=== PATIENT | female | born 1955 | race African-American/Black ===

== ENCOUNTER 2020-01-26 09:35 | Outpatient (CLI) | payer BC, SELFPAY ==
--- NOTE | ~2020-01-26 | CT_ITS ---
EXAMINATION: CT chest wo con EXAM DATE: 01/26/2020 09:57 INDICATION: Lung nodule. TECHNIQUE: Spiral CT of the chest without contrast. Axial, coronal and sagittal images were reviewe d. Coronal maximum intensity pixel images of chest reviewed. The dose-length product (DLP) for this examination was 156.26 mGy-cm. The exposure was tailored according to patient size (auto mA exposur e control), and iterative reconstruction (ASIR) was used as additional dose reduction technique. Comp arison is made to prior examination from 02/19/2018. FINDINGS: There is mild emphysema and hyperinflation. 3 mm left lower lobe noncalcified granuloma un changed. There are no suspicious pulmonary nodules. There are no pleural or pericardial effusions. Tracheobronchial tree is patent. There is no mediastinal, hilar or axillary lymphadenopathy. The re is no pneumothorax. Heart normal in size. No evidence of coronary arterial calcification. Ther e is small sliding gastroesophageal hiatal hernia. Upper abdomen is unremarkable. There is thoraci c spondylosis without osteoblastic or osteolytic lesions identified. IMPRESSION: 1. Mild hyperinflation and emphysema. 2. Granuloma. Reviewed, dictated and finalized at location A.
== END 2020-01-26 09:36 | disposition home or self-care (01) ==
LOC: ANHIMG 09:37
PROVIDERS: PCP Nurse Practitioner; Visit Provider Nurse Practitioner
DX: R91.1 Solitary pulmonary nodule (principal); J43.9 Emphysema, unspecified; R91.8 Other nonspecific abnormal finding of lung field
CPT/HCPCS: 71250

== ENCOUNTER 2020-10-27 14:20 | Outpatient (CLI) | payer MEDICARE, SELFPAY ==
--- NOTE | ~2020-10-27 | MM_ITS ---
EXAMINATION: MM screening coty BI w enrique HISTORY: Screening TECHNIQUE: Craniocaudal and mediolateral oblique 3-D tomosynthesis images were obtained and synthetic 2-D images were generated. CAD analysis was submitted and interpreted. COMPARISON: No prior mammogram is available for comparison at this institution. BREAST PARENCHYMAL COMPOSITION: There are scattered areas of fibroglandular density. FINDINGS: There are focal asymmetries in the upper outer quadrant of the right breast. There are no s uspicious masses, calcifications or architectural distortion in the left breast. IMPRESSION: 1. Right breast asymmetries. 2. Additional mammographic views and possible breast ultrasound are recommended. BI-RADS Category 0: Incomplete: Needs additional imaging evaluation. Reviewed, dictated and finalized at location A. IMPRESSION: 1. Right breast asymmetries. 2. Additional mammographic views and possible breast ultrasound are recommended . BI-RADS Category 0: Incomplete: Needs additional imaging evaluation.
--- NOTE | ~2020-10-27 | DEXA_ITS ---
Bone Density Report Name: Courtney Lizama Age: 65 Sex: Female Ethnicity: Black Date of : 1955 Indication: postmenopausal; prior fracture; asthma or emphysema; hysterectomy; Referring Provider: Sindy Carl Study: Bone densitometry was performed. Exam Date: October 27, 2020 Accession number: [id number] Bone Density: Region BMD T-score Z-score Classification AP Spine (L1-L4) 1.145 0.9 1.9 Normal Femoral Neck (Left) 0.801 -0.4 0.2 Normal Total Hip (Left) 0.993 0.4 0.7 Normal Total Hip Bilateral Avg 0.965 0.2 0.6 Normal Femoral Neck (Right) 0.781 -0.6 0.1 Normal Total Hip (Right) 0.937 0.0 0.4 Normal World Health Organization criteria for BMD impression classify patients as: Normal (T-score at or above -1.0), Osteopenia (T-score between -1.0 and -2.5), or Osteoporosis (T-score at or below -2.5). 10-year Fracture Risk: FRAX not reported because: All T-scores for Spine Total, Hip Total, Femoral Neck at or above -1.0 Clinical Information Provided by Patient: Has had a low trauma fracture Has used the following medications: Vitamin D Has the following medical conditions: Asthma or Emphysema, Hysterectomy Patient maximum height was 65 Menopause Age: 41 No regular weight bearing exercise Drinks caffeinated beverages Onset of menses at age 11 Number of children 2 Impression: The patient has normal bone mass. The patient has risk factors, including: previous fracture. Discussion: BONE DENSITY IS ABOVE THE MINIMUM DESIRABLE LEVEL AT ALL SKELETAL SITES TESTED. This patient?s bone mineral density is above the minimum desirable level (T-score -1.0 or better) at all sites measured. The patient should follow a healthful lifestyle (good nutrition with adequate calcium and vitamin D, and appropriate weight-bearing exercise). Follow-Up: Consider repeating this study in 5 years or sooner if there is some new clinical indication. Reported by: CARRIE on 10/27/2020 2:56:00 PM. Reviewed, dictated and finalized at location [facility]
== END 2020-10-27 14:21 | disposition home or self-care (01) ==
LOC: ANHIMG 14:22
PROVIDERS: PCP Nurse Practitioner; Visit Provider Nurse Practitioner
DX: Z12.31 Encounter for screening mammogram for malignant neoplasm of breast (principal); R92.8 Other abnormal and inconclusive findings on diagnostic imaging of breast; Z78.0 Asymptomatic menopausal state
CPT/HCPCS: 77063; 77067; 77080

== ENCOUNTER 2020-11-22 12:42 | Outpatient (CLI) | payer MEDICARE, SELFPAY ==
--- NOTE | ~2020-11-22 | MMUS_ITS ---
EXAMINATION: MM diagnostic mammo unilat RT, US breast RT complete HISTORY: Right breast asymmetries reported on 10/27/2020 screening mammogram TECHNIQUE: Additional 3-D tomosynthesis images of the right breast were performed and synthetic 2-D i mages were generated. CAD analysis was submitted and interpreted. High resolution complete right farrah st ultrasound was performed. COMPARISON: 10/27/2020 bilateral digital screening mammogram FINDINGS: MAMMOGRAPHIC FINDINGS: No reproducible suspicious mass or architectural distortion is evident. Occasional benign calcificati ons. No malignant calcification, skin thickening or retraction is detected. ULTRASOUND: 12:00 2 cm from nipple: 4 mm simple cyst 1:00 near nipple: 5 mm cyst No suspicious mass or shadowing is detected. IMPRESSION: 1. No mammographic evidence of malignancy 2. Routine mammographic screening is recommended BI-RADS Category 2: Benign finding(s). Reviewed, dictated and finalized at location A. IMPRESSION: 1. No mammographic evidence of malignancy 2. Routine mammographic screening is recommended BI-RADS Category 2: Benign finding(s).
== END 2020-11-22 12:43 | disposition home or self-care (01) ==
LOC: ANHIMG 12:42
PROVIDERS: PCP Nurse Practitioner; Visit Provider Nurse Practitioner
DX: R92.8 Other abnormal and inconclusive findings on diagnostic imaging of breast (principal)
CPT/HCPCS: 76641; 77065

== ENCOUNTER 2021-02-16 10:32 | Outpatient (CLI) | payer MEDICARE, SELFPAY ==
--- NOTE | ~2021-02-16 | CT_ITS ---
EXAMINATION: CT diagnostic chest wo con DATE: 02/16/2021 10:54 INDICATION: Other nonspecific finding of the lung field TECHNIQUE: Computed tomography (CT) of the chest was performed without intravenous contrast. The dose -length product (DLP) was 156.37 mGy-cm. Automated exposure control and iterative reconstruction tech nique were employed. COMPARISON: 01/26/2020 FINDINGS: There is mild emphysema. A stable 3 mm subpleural nodule is noted in the left lower lobe. N o new pulmonary nodules are identified. The lungs are free of acute opacities. There is no pleural ef fusion or pneumothorax. No pathologically enlarged thoracic lymph nodes are identified. The heart siz e is normal. There is mild thoracic spondylosis. IMPRESSION: 1. Stable pulmonary nodule consistent with old granulomatous disease. Reviewed, dictated and finalized at location A.
== END 2021-02-16 10:33 ==
PROVIDERS: PCP Nurse Practitioner; Visit Provider Nurse Practitioner
DX: R91.8 Other nonspecific abnormal finding of lung field (principal); M47.814 Spondylosis without myelopathy or radiculopathy, thoracic region; R91.1 Solitary pulmonary nodule
CPT/HCPCS: 71250

== ENCOUNTER 2021-10-24 08:00 | Outpatient (CLI) | payer MEDICARE, SELFPAY ==
--- NOTE | 2021-11-16 11:41 | WPDSLEEPSTUD ---
Sleep Study Date of Study: 10/24/21 Ordering Provider: Sindy Carl NP Interpreting Physician: Roxanna Flowers MD Sleep Study Type: Split Polysomnogram Height: 1.68 m Weight: 93.894 kg Body Mass Index: 33.4 Neck Circumference (inches): 17 [place]: 10 Reason for Sleep Study Hypersomnia Sleep History Courtney Lizama is a 66 year old female with loud snoring and witnessed apneas. She rarely awakens from sleep feeling short of breath. She occasionally awakens at night with heartburn, belching or coughing. She constantly snores loudly enough that others complain about it. She occasionally has trouble sleeping with a cold. She rarely wakes up gasping for breath at night. She rarely has breathing problems at night observed by others. She does not sweat excessively at night or notice her heart pounding or beating irregularly at night. She does not fall asleep during the day does not fall asleep involuntarily or while driving. She denies loss of muscle tone with strong emotion. She does not have daytime difficulties due to excessive sleepiness. She does not feel paralyzed on waking or falling asleep. She rarely has vivid dreamlike scenes upon awakening or falling asleep. She does not feel afraid to go to sleep. She rarely has nightmares. She occasionally remembers her dreams. She does not have racing thoughts. She rarely feels sad or depressed. She does not have anxiety. She rarely has muscular tension. She does not notice parts of her body jerking. She does not kick at night. She rarely has crawling and aching feelings in her legs. She rarely has any kind of leg pain during the night. She does not have morning jaw pain. She denies grinding her teeth during sleep. She is not bothered by pain during the day and is not awakened by pain during the night. She rarely wakes up feeling stiff in the morning, rarely wakes up with sore or achy muscles and rarely wakes up with pain in the neck and spine. She sometimes has headaches. Normal bedtime is 8:30 p.m. falling a quickly waking up once or twice at night to go to the bathroom and is easily able to return to sleep. She wakes the morning at 5:30 a.m.. Her weekend schedule varies with bedtime later at 10:00 p.m. but still wakes up 5:30 a.m. She does n take naps in the afternoon or evening. She feels good on waking. Habits: Quit tobacco 9 years ago. Coffee 2 cups a day. No alcohol or recreational drugs. [facility] Past Medical History Medical History Asthma Depression Hyperlipidemia Hypertension, essential, benign Lung nodule, multiple RT upper lung and LT lower lung nodules Osteoporosis Surgical History Surgical History History of section 1974, 1978 History of elbow surgery (~2015) Mass removed from left elbow History of hysterectomy (~2015) Family History Family History Other Family history of cardiovascular disease Family history of coronary artery disease Family history of malignant neoplasm Hypertension Social History Social History Smoking status: Former smoker Second hand tobacco smoke exposure: No Smoking end date: 04/30/07 Alcohol intake: current Substance use: never Substance use type: does not use Gender identity (if verbalized by the patient): Female Medications Home Medications Medication Instructions Recorded Confirmed Type aspirin 81 mg tablet,delayed 81 mg PO DAILY 03/26/19 09/21/21 History release (Adult Low Dose Aspirin) cetirizine 10 mg tablet (Zyrtec) 10 mg PO DAILY 03/26/19 09/21/21 History albuterol sulfate 2.5 mg/3 mL 2.5 mg (3 mL) inhalation Q4-6H PRN 08/04/20 09/21/21 Rx (0.083 %) solution for nebulization shortness of breath or wheezing #75 mL atorvastatin 20 mg tablet (L
[2021-11-16 13:26] VITALS: BMI 33.4
== END 2021-10-25 05:46 | disposition home or self-care (01) ==
LOC: ANHCSM 08:00
PROVIDERS: PCP Nurse Practitioner; Visit Provider Nurse Practitioner
DX: G47.10 Hypersomnia, unspecified (principal); G47.33 Obstructive sleep apnea (adult) (pediatric)
CPT/HCPCS: 95811

== ENCOUNTER 2022-02-11 08:14 | Outpatient (CLI) | payer MEDICARE, SELFPAY ==
--- NOTE | ~2022-02-11 | MM_ITS ---
EXAMINATION: MM screening coty BI w enrique HISTORY: Screening TECHNIQUE: Craniocaudal and mediolateral oblique 3-D tomosynthesis images were obtained and synthetic 2-D images were generated. CAD analysis was submitted and interpreted. COMPARISON: Comparison to multiple prior studies sequentially, with oldest reviewed study dated 10/27. BREAST PARENCHYMAL COMPOSITION: There are scattered areas of fibroglandular density. FINDINGS: There is a new focal asymmetry medially in the right breast on CC view. The left breast is stable without evidence for malignancy. IMPRESSION: 1. New right breast asymmetry. 2. Additional mammographic views and possible breast ultrasound are recommended. BI-RADS Category 0: Incomplete: Needs additional imaging evaluation. Reviewed, dictated and finalized at location A. IMPRESSION: 1. New right breast asymmetry. 2. Additional mammographic views and possible breast ultrasound are recommended . BI-RADS Category 0: Incomplete: Needs additional imaging evaluation.
== END 2022-02-11 08:15 | disposition home or self-care (01) ==
PROVIDERS: PCP Nurse Practitioner; Visit Provider Nurse Practitioner
DX: Z12.31 Encounter for screening mammogram for malignant neoplasm of breast (principal); R92.8 Other abnormal and inconclusive findings on diagnostic imaging of breast
CPT/HCPCS: 77063; 77067

== ENCOUNTER 2022-03-07 09:24 | Outpatient (CLI) | payer MEDICARE, SELFPAY ==
[2022-03-07 18:23] LABS: Basophils Percent Auto 0.2 % (0.2-1.2); Hematocrit 41.4 % (37.0-47.0); Hemoglobin 12.8 g/dL (12.0-15.0); Immature Granulocyte Absolute 0.02 K/mm3 (0.00-0.031); Immature Granulocyte Percent A 0.3 % (0-0.5); Lymphocytes Absolute Auto 2.59 K/mm3 (0.9-3.2); Lymphocytes Percent Auto 40.7 % (18.3-44.2); Mean Corpuscular HGB Conc 30.9 g/dl (32-36); Mean Corpuscular Hemoglobin 29.9 pg (26-34); Mean Corpuscular Volume 96.7 fl (80-100); Mean Platelet Volume 10.4 fl (7.4-10.4); Monocytes Absolute Auto 0.7 K/mm3 (0.1-0.6); Monocytes Percent Auto 10.2 % (2.6-8.5); Neutrophils Absolute Auto 3.1 K/mm3 (1.3-6.7); Neutrophils Percent Auto 48.6 % (45.5-73.1); Platelet Count Result 189 k/mm3 (150-375); Red Blood Count 4.28 M/mm3 (4.2-5.4); Red Cell Distribution Width 13.1 % (11.5-14.5); White Blood Count 6.4 K/mm3 (4.5-10.0)
[2022-03-07 18:53] LABS: Alanine Aminotransferase 27 U/L (6-35); Albumin Level 4.4 g/dL (3.5-5.1); Alkaline Phosphatase 98 U/L (38-126); Anion Gap 7 mmol/L (8-16); Aspartate Amino Transferase 29 U/L (14-36); Bilirubin,Total 0.5 mg/dL (0.2-1.3); Blood Urea Nitrogen 17 mg/dL (7-17); Calcium 9.5 mg/dL (8.4-10.2); Carbon Dioxide 29 mmol/L (22-30); Chloride 104 mmol/L (98-107); Cholesterol 170 mg/dL (0-200); Estimated Glomerular Filt Rate > 60; Glucose 90 mg/dL (65-110); HDL Direct 43 mg/dL; Potassium 4.5 mmol/L (3.4-5.0); Sodium 140 mmol/L (137-145); Triglycerides 83 mg/dL (<150)
[2022-03-07 19:02] LABS: LDL Cholesterol Direct 99 mg/dL
[2022-03-07 20:26] LABS: Thyroid Stimulating Hormone Reflex 0.614 uIU/mL (0.465-4.68)
== END 2022-03-07 09:25 | disposition home or self-care (01) ==
LOC: ANHGOSHLAB 09:26
PROVIDERS: PCP Family Medicine; Visit Provider Nurse Practitioner
DX: R63.5 Abnormal weight gain (principal); E78.5 Hyperlipidemia, unspecified; I10 Essential (primary) hypertension
CPT/HCPCS: 36415; 80053; 80061; 84443; 85025

== ENCOUNTER → 2022-03-10 08:36 | Outpatient (CLI) | payer MEDICARE, SELFPAY ==
--- NOTE | ~2022-03-10 | MMUS_ITS ---
EXAMINATION: MM diagnostic coty RT w enrique, US breast RT complete HISTORY: New right breast asymmetry reported in medial aspect right breast on screening craniocaudal view of 02/11/2022. TECHNIQUE: Additional 3-D tomosynthesis images of right breast were performed and synthetic 2-D image s were generated. CAD analysis was submitted and interpreted. High resolution complete right breast u ltrasound including all 4 quadrants and subareolar area was performed. COMPARISON: 02/11/2022 bilateral screening mammogram 11/22/2020 diagnostic right mammogram and complete right breast ultrasound 10/27/2020 bilateral screening mammogram FINDINGS: MAMMOGRAPHIC FINDINGS: Possible 9.5 mm mass in the central left breast medial to mid sagittal plane, 4 cm deep to the nipple (coned compression craniocaudal Tomosynthesis image ) ULTRASOUND: 1:00 4 cm from nipple: Parallel circumscribed hypoechoic 4.4 x 7.6 x 7.5 mm lesion is noted, without posterior features or internal vascularity. 9:00 4 cm from nipple: Mildly irregular approximately 3 mm hypoechoic lesion is noted IMPRESSION: 1. Suspicious abnormalities of right breast at 1:00 4 cm from nipple and 9:00 4 cm from nipple 2. Ultrasound-guided biopsy of 1:00 and 9:00 lesions is recommended BI-RADS category 4, suspicious findings. Dr. Celestin telephoned the report and ultrasound-guided biopsy recommendations of right breast at 1:00 a nd 9:00 on 03/10/2022 at 1005 hours to Sindy Carl Reviewed, dictated and finalized at location A. Y MOTORMAN IMPRESSION: 1. Suspicious abnormalities of right breast at 1:00 4 cm from nipple and 9:00 4 cm from nipple 2. Ultrasound-guided biopsy of 1:00 and 9:00 lesions is recommended BI-RADS category 4, suspicious findings. Dr. Celestin telephoned the report and ultrasound-guided biopsy recommendations of right breast at 1:00 and 9:00 on 03/10/2022 at 1005 hours to Sindy Carl
== END ==
PROVIDERS: PCP Nurse Practitioner; Visit Provider Nurse Practitioner
DX: R92.8 Other abnormal and inconclusive findings on diagnostic imaging of breast (principal)
CPT/HCPCS: 76641; 77061; 77065; G0279

== ENCOUNTER 2022-06-10 08:15 | Outpatient (CLI) | payer MEDICARE, SELFPAY ==
--- NOTE | ~2022-06-10 | CT_ITS ---
CT Scan of the Chest without Contrast: Clinical Indication: Lung nodule Technique: Contiguous sections were acquired throughout the chest without intravenous contrast. Dose reduction technique was used on this scan by utilizing automated exposure control and iterative recon struction technique. The dose-length product (DLP) was 204.25 mGy-cm. COMPARISON: 02/16/2021, 02/19/2018 Findings: There is no evidence of any significant mediastinal, hilar or axillary lymphadenopathy. The mediastin al soft tissues appear normal. There is no evidence of pleural or pericardial effusion. Stable 2 mm right apical pulmonary nodule. Stable 3 mm subpleural nodule at the left lung base periph erally. Images through the upper abdomen reveal no abnormalities. Impression: Stable subcentimeter pulmonary nodules, as noted above. Stability since 2017 is compatible with benig nity. Reviewed, dictated and finalized at [facility]. ASOUND TECHNICIAN Impression: Stable subcentimeter pulmonary nodules, as noted above. Stability since 2018 is compatible with benignity.
== END 2022-06-10 08:16 | disposition home or self-care (01) ==
PROVIDERS: PCP Family Medicine; Visit Provider Nurse Practitioner
DX: R91.8 Other nonspecific abnormal finding of lung field (principal)
CPT/HCPCS: 71250

== ENCOUNTER 2022-09-20 09:26 | Outpatient (CLI) | payer MEDICARE, SELFPAY ==
[2022-09-20 13:08] LABS: Basophils Percent Auto 0.2 % (0.2-1.2); Hematocrit 40.4 % (37.0-47.0); Hemoglobin 12.7 g/dL (12.0-15.0); Immature Granulocyte Absolute 0.04 K/mm3 (0.00-0.031); Immature Granulocyte Percent A 0.6 % (0-0.5); Lymphocytes Absolute Auto 2.75 K/mm3 (0.9-3.2); Lymphocytes Percent Auto 41.8 % (18.3-44.2); Mean Corpuscular HGB Conc 31.4 g/dl (32-36); Mean Corpuscular Hemoglobin 29.8 pg (26-34); Mean Corpuscular Volume 94.8 fl (80-100); Mean Platelet Volume 10.2 fl (7.4-10.4); Monocytes Absolute Auto 0.7 K/mm3 (0.1-0.6); Monocytes Percent Auto 9.9 % (2.6-8.5); Neutrophils Absolute Auto 3.1 K/mm3 (1.3-6.7); Neutrophils Percent Auto 47.5 % (45.5-73.1); Platelet Count Result 198 k/mm3 (150-375); Red Blood Count 4.26 M/mm3 (4.2-5.4); Red Cell Distribution Width 12.9 % (11.5-14.5); White Blood Count 6.6 K/mm3 (4.5-10.0)
[2022-09-20 13:27] LABS: Alanine Aminotransferase 27 U/L (6-35); Albumin Level 4.2 g/dL (3.5-5.1); Alkaline Phosphatase 92 U/L (38-126); Anion Gap 4 mmol/L (8-16); Aspartate Amino Transferase 56 U/L (14-36); Bilirubin,Total 0.5 mg/dL (0.2-1.3); Blood Urea Nitrogen 19 mg/dL (7-17); Calcium 9.5 mg/dL (8.4-10.2); Carbon Dioxide 32 mmol/L (22-30); Chloride 104 mmol/L (98-107); Cholesterol 175 mg/dL (0-200); Estimated Glomerular Filt Rate > 60; Glucose 89 mg/dL (65-110); HDL Direct 45 mg/dL; Potassium 4.3 mmol/L (3.4-5.0); Sodium 140 mmol/L (137-145); Triglycerides 130 mg/dL (<150)
[2022-09-20 13:38] LABS: LDL Cholesterol Direct 103 mg/dL
[2022-09-20 13:51] LABS: Hemoglobin A1C 5.7 % (<5.7)
[2022-09-20 13:52] LABS: Thyroid Stimulating Hormone 0.258 uIU/mL (0.465-4.680)
[2022-09-20 13:57] LABS: Vitamin D 25 Hydroxy 31.8 ng/mL
== END 2022-09-20 09:27 | disposition home or self-care (01) ==
LOC: ANHGOSHLAB 09:27
PROVIDERS: PCP Family Medicine; Visit Provider Nurse Practitioner Family
DX: I10 Essential (primary) hypertension (principal); Z13.220 Encounter for screening for lipoid disorders; Z13.29 Encounter for screening for other suspected endocrine disorder; Z13.1 Encounter for screening for diabetes mellitus
CPT/HCPCS: 36415; 80053; 80061; 82306; 83036; 84443; 85025

== ENCOUNTER 2022-11-15 08:55 | Outpatient (CLI) | payer MEDICARE, SELFPAY ==
--- NOTE | 2022-11-15 11:00 | NEURO_ITS ---
Impression: # Complains of numbness of hands. # Bilateral Carpal Tunnel Syndrome of mild degree. # Bilateral ulnar neuropathy across the elbows. # Normal needle/EMG. Nerve Conduction Studies Anti Sensory Summary Table Stim Site NR Peak (ms) P-T Amp (?V) Site1 Site2 Delta-P (ms) Dist (cm) [place] (m/s) Left Median Anti Sensory (2-3nd Digit) Wrist 4.4 13.4 Wrist 2-3nd Digit 4.4 14.0 32 Wrist 7.9 16.2 Wrist 2-3nd Digit 4.4 14.0 32 Right Median Anti Sensory (2-3nd Digit) Wrist 4.2 16.1 Wrist 2-3nd Digit 4.2 14.0 33 Wrist 4.3 13.8 Wrist 2-3nd Digit 4.2 14.0 33 Left Radial Anti Sensory (Base 1st Digit) Wrist 2.0 18.4 Wrist Base 1st Digit 2.0 0.0 Right Radial Anti Sensory (Base 1st Digit) Wrist 2.3 19.1 Wrist Base 1st Digit 2.3 0.0 Left Ulnar Anti Sensory (5th Digit) Wrist 2.7 15.0 Wrist 5th Digit 2.7 14.0 52 Right Ulnar Anti Sensory (5th Digit) Wrist 2.6 26.1 Wrist 5th Digit 2.6 14.0 54 Motor Summary Table Stim Site NR Onset (ms) O-P Amp (mV) Site1 Site2 Delta-0 (ms) Dist (cm) [place] (m/s) Left Median Motor (Abd Poll Brev) Wrist 4.7 2.8 Elbow Wrist 4.7 29.0 62 Elbow 9.4 3.2 Right Median Motor (Abd Poll Brev) Wrist 4.2 2.5 Elbow Wrist 5.5 30.0 55 Elbow 9.7 1.6 Left Ulnar Motor (Abd Dig Minimi) Wrist 2.9 5.7 A Elbow Wrist 6.0 29.0 48 A Elbow 8.9 4.6 B Elbow Wrist 3.4 20.0 59 B Elbow 6.3 2.9 Right Ulnar Motor (Abd Dig Minimi) Wrist 2.3 7.6 A Elbow Wrist 6.0 29.0 48 A Elbow 8.3 6.5 B Elbow Wrist 4.0 21.0 53 B Elbow 6.3 3.0 F Wave Studies NR F-Lat (ms) L-R F-Lat (ms) Left Median (Mrkrs) (Abd Poll Brev) 31.02 1.07 Right Median (Mrkrs) (Abd Poll Brev) 29.95 1.07 Left Ulnar (Mrkrs) (Abd Dig Min) 29.83 0.56 Right Ulnar (Mrkrs) (Abd Dig Min) 29.26 0.56 EMG Side Muscle Nerve Root Ins Act Fibs Amp Dur Recrt Comment Right 1stDorInt Ulnar C8-T1 Nml Nml Nml Nml Nml Right Ext Indicis Radial (Post Int) C7-8 Nml Nml Nml Nml Nml Right Ext Digitorum Radial (Post Int) C7-8 Nml Nml Nml Nml Nml Right BrachioRad Radial C5-6 Nml Nml Nml Nml Nml Right PronatorTeres Median C6-7 Nml Nml Nml Nml Nml Right Abd Poll Brev Median C8-T1 Nml Nml Nml Nml Nml Left 1stDorInt Ulnar C8-T1 Nml Nml Nml Nml Nml Left Ext Indicis Radial (Post Int) C7-8 Nml Nml Nml Nml Nml Left Ext Digitorum Radial (Post Int) C7-8 Nml Nml Nml Nml Nml Left BrachioRad Radial C5-6 Nml Nml Nml Nml Nml Left PronatorTeres Median C6-7 Nml Nml Nml Nml Nml Left Abd Poll Brev Median C8-T1 Nml Nml Nml Nml Nml Right ABD Dig Min Ulnar C8-T1 Nml Nml Nml Nml Nml Left ABD Dig Min Ulnar C8-T1 Nml Nml Nml Nml Nml MTDD
== END 2022-11-15 08:56 | disposition home or self-care (01) ==
LOC: ANHNEURO 08:56
PROVIDERS: PCP Family Medicine; Visit Provider Nurse Practitioner Family
DX: M54.9 Dorsalgia, unspecified (principal); G56.03 Carpal tunnel syndrome, bilateral upper limbs; G56.23 Lesion of ulnar nerve, bilateral upper limbs
CPT/HCPCS: 95886; 95911

== ENCOUNTER 2022-11-22 13:42 | Outpatient (CLI) | payer MEDICARE, SELFPAY ==
[2022-11-22 19:08] LABS: Alanine Aminotransferase 30 U/L (6-35); Albumin Level 4.4 g/dL (3.5-5.1); Alkaline Phosphatase 86 U/L (38-126); Anion Gap 6 mmol/L (8-16); Aspartate Amino Transferase 32 U/L (14-36); Bilirubin,Total 0.4 mg/dL (0.2-1.3); Blood Urea Nitrogen 22 mg/dL (7-17); Calcium 10.2 mg/dL (8.4-10.2); Carbon Dioxide 30 mmol/L (22-30); Chloride 103 mmol/L (98-107); Estimated Glomerular Filt Rate > 60; Glucose 78 mg/dL (65-110); Potassium 4.4 mmol/L (3.4-5.0); Sodium 139 mmol/L (137-145)
== END 2022-11-22 13:43 | disposition home or self-care (01) ==
LOC: ANHGOSHLAB 13:46
PROVIDERS: PCP Family Medicine; Visit Provider Nurse Practitioner Family
DX: R20.2 Paresthesia of skin (principal); I10 Essential (primary) hypertension; Z13.29 Encounter for screening for other suspected endocrine disorder
CPT/HCPCS: 36415; 80053; 82607; 83735; 84443

== ENCOUNTER 2023-03-29 11:12 | Outpatient (CLI) | payer MEDICARE, SELFPAY ==
[2023-03-29 15:01] LABS: Basophils Percent Auto 0.1 % (0.2-1.2); Hematocrit 39.9 % (37.0-47.0); Hemoglobin 12.4 g/dL (12.0-15.0); Immature Granulocyte Absolute 0.03 K/mm3 (0.00-0.031); Immature Granulocyte Percent A 0.4 % (0-0.5); Lymphocytes Absolute Auto 3.15 K/mm3 (0.9-3.2); Lymphocytes Percent Auto 43.8 % (18.3-44.2); Mean Corpuscular HGB Conc 31.1 g/dl (32-36); Mean Corpuscular Hemoglobin 29.6 pg (26-34); Mean Corpuscular Volume 95.2 fl (80-100); Mean Platelet Volume 10.3 fl (7.4-10.4); Monocytes Absolute Auto 0.6 K/mm3 (0.1-0.6); Monocytes Percent Auto 8.8 % (2.6-8.5); Neutrophils Absolute Auto 3.4 K/mm3 (1.3-6.7); Neutrophils Percent Auto 46.9 % (45.5-73.1); Platelet Count Result 202 k/mm3 (150-375); Red Blood Count 4.19 M/mm3 (4.2-5.4); Red Cell Distribution Width 12.9 % (11.5-14.5); White Blood Count 7.2 K/mm3 (4.5-10.0)
[2023-03-29 15:25] LABS: Alanine Aminotransferase 27 U/L (6-35); Albumin Level 4.4 g/dL (3.5-5.1); Alkaline Phosphatase 96 U/L (38-126); Anion Gap 8 mmol/L (8-16); Aspartate Amino Transferase 44 U/L (14-36); Bilirubin,Total 0.6 mg/dL (0.2-1.3); Blood Urea Nitrogen 15 mg/dL (7-17); Calcium 9.9 mg/dL (8.4-10.2); Carbon Dioxide 30 mmol/L (22-30); Chloride 105 mmol/L (98-107); Cholesterol 186 mg/dL (0-200); Estimated Glomerular Filt Rate > 60; Glucose 68 mg/dL (65-110); HDL Direct 42 mg/dL; Sodium 143 mmol/L (137-145); Triglycerides 103 mg/dL (<150)
[2023-03-29 15:37] LABS: LDL Cholesterol Direct 103 mg/dL
[2023-03-29 16:02] LABS: Thyroid Stimulating Hormone 0.294 uIU/mL (0.465-4.680)
[2023-03-29 17:42] LABS: Hemoglobin A1C 5.5 % (<5.7)
== END 2023-03-29 11:13 | disposition home or self-care (01) ==
LOC: ANHGOSHLAB 11:13
PROVIDERS: PCP Family Medicine; Visit Provider Nurse Practitioner Family
DX: R91.8 Other nonspecific abnormal finding of lung field (principal); R73.03 Prediabetes; I10 Essential (primary) hypertension; Z13.29 Encounter for screening for other suspected endocrine disorder; Z13.220 Encounter for screening for lipoid disorders
CPT/HCPCS: 36415; 80053; 80061; 83036; 84443; 85025

== ENCOUNTER 2023-07-07 07:11 | Outpatient (CLI) | payer MEDICARE, SELFPAY ==
--- NOTE | ~2023-07-07 | MM_ITS ---
EXAMINATION: MM screening coty BI w enrique HISTORY: Screening mammogram TECHNIQUE: Craniocaudal and mediolateral oblique 3-D tomosynthesis images were obtained and synthetic 2-D images were generated. CAD analysis was submitted and interpreted. COMPARISON: 03/10/2022 diagnostic right mammogram and complete right breast ultrasound examination BREAST PARENCHYMAL COMPOSITION: There are scattered areas of fibroglandular density. FINDINGS: Asymmetry is again noted on the right. Diagnostic right mammogram and right breast ultrasou nd examination are recommended. No suspicious mass, architectural distortion, malignant calcification, skin thickening or retraction or significant new or developing density of the left breast is detected. IMPRESSION: 1. Right mammographic asymmetry 2. Diagnostic right mammogram and right breast ultrasound examination are recommended. BI-RADS Category 0: Incomplete: Needs additional imaging evaluation. Reviewed, dictated and finalized at location A. CUTTING MACHINE OPERATOR IMPRESSION: 1. Right mammographic asymmetry 2. Diagnostic right mammogram and right breast ultrasound examination are recom mended. BI-RADS Category 0: Incomplete: Needs additional imaging evaluation.
== END 2023-07-07 07:12 | disposition home or self-care (01) ==
LOC: ANHIMG 07:14
PROVIDERS: PCP Family Medicine; Visit Provider Nurse Practitioner Family
DX: Z12.31 Encounter for screening mammogram for malignant neoplasm of breast (principal); R92.8 Other abnormal and inconclusive findings on diagnostic imaging of breast
CPT/HCPCS: 77063; 77067

== ENCOUNTER 2023-07-30 13:06 | Outpatient (CLI) | payer MEDICARE, SELFPAY ==
--- NOTE | ~2023-07-30 | MMUS_ITS ---
EXAMINATION: MM diagnostic coty RT w enrique, US breast RT limited HISTORY: Follow-up right breast asymmetry TECHNIQUE: Additional 3-D tomosynthesis images of the right breast were performed and synthetic 2-D i mages were generated. CAD analysis was submitted and interpreted. High resolution Limited right breas t ultrasound was performed. COMPARISON: 07/07/2023 BREAST PARENCHYMAL COMPOSITION: Not dense: There are scattered areas of fibroglandular density. FINDINGS: MAMMOGRAPHIC FINDINGS: There are persistent asymmetries primarily centered in the upper outer quadrant of the right breast w hich are obscured by fibroglandular content. No discrete mass identified. There are no suspicious zeferino cifications or architectural distortion. ULTRASOUND: Limited right breast ultrasound: At 9:00, 9 cm from the nipple there is a 3 mm cyst. At 10:00, near t he nipple there is a 4 mm cyst. At 11:00 near the nipple is a cluster of microcysts. At 12:00, 5 cm f rom the nipple there is a 1 cm minimally complicated cyst. IMPRESSION: 1. No evidence for malignancy in the right breast. Benign findings. 2. Routine yearly screening mammogram and regular clinical breast examination are recommended. BI-RADS Category 2: Benign finding(s). Reviewed, dictated and finalized at location A. IMPRESSION: 1. No evidence for malignancy in the right breast. Benign findings. 2. Routine yearly screening mammogram and regular clinical breast examination a re recommended. BI-RADS Category 2: Benign finding(s).
== END 2023-07-30 13:07 | disposition home or self-care (01) ==
LOC: ANHIMG 13:07
PROVIDERS: PCP Family Medicine; Visit Provider Nurse Practitioner Family
DX: N63.10 Unspecified lump in the right breast, unspecified quadrant (principal); R92.8 Other abnormal and inconclusive findings on diagnostic imaging of breast
CPT/HCPCS: 76642; 77061; 77065; G0279

== ENCOUNTER 2024-01-10 09:52 | Outpatient (CLI) | payer MEDICARE, SELFPAY ==
[2024-01-10 18:53] LABS: Basophils Percent Auto 0.2 % (0.2-1.2); Hematocrit 40.2 % (37.0-47.0); Immature Granulocyte Absolute 0.02 K/mm3 (0.00-0.031); Immature Granulocyte Percent A 0.3 % (0-0.5); Lymphocytes Absolute Auto 2.78 K/mm3 (0.9-3.2); Lymphocytes Percent Auto 42.2 % (18.3-44.2); Mean Corpuscular HGB Conc 32.3 g/dl (32-36); Mean Corpuscular Hemoglobin 30.6 pg (26-34); Mean Corpuscular Volume 94.6 fl (80-100); Mean Platelet Volume 10.7 fl (7.4-10.4); Monocytes Absolute Auto 0.6 K/mm3 (0.1-0.6); Neutrophils Absolute Auto 3.2 K/mm3 (1.3-6.7); Neutrophils Percent Auto 48.3 % (45.5-73.1); Platelet Count Result 214 k/mm3 (150-375); Red Blood Count 4.25 M/mm3 (4.2-5.4); Red Cell Distribution Width 12.8 % (11.5-14.5); White Blood Count 6.6 K/mm3 (4.5-10.0)
[2024-01-10 19:16] LABS: Alanine Aminotransferase 29 U/L (6-35); Albumin Level 4.4 g/dL (3.5-5.1); Alkaline Phosphatase 86 U/L (38-126); Anion Gap 11 mmol/L (4-12); Aspartate Amino Transferase 45 U/L (14-36); Bilirubin,Total 0.3 mg/dL (0.2-1.3); Blood Urea Nitrogen 17 mg/dL (7-17); Calcium 9.8 mg/dL (8.4-10.2); Carbon Dioxide 28 mmol/L (22-30); Chloride 101 mmol/L (98-107); Cholesterol 169 mg/dL (0-200); Estimated Glomerular Filt Rate > 60; Glucose 75 mg/dL (65-110); HDL Direct 41 mg/dL; Potassium 4.4 mmol/L (3.4-5.0); Sodium 140 mmol/L (137-145); Triglycerides 95 mg/dL (<150)
[2024-01-10 19:36] LABS: LDL Cholesterol Direct 104 mg/dL
[2024-01-10 19:42] LABS: Thyroid Stimulating Hormone 0.215 uIU/mL (0.465-4.680)
[2024-01-10 19:44] LABS: Vitamin D 25 Hydroxy 25.6 ng/mL
[2024-01-10 19:50] LABS: Hemoglobin A1C 5.8 % (<5.7)
== END 2024-01-10 09:53 | disposition home or self-care (01) ==
LOC: ANHGOSHLAB 09:53
PROVIDERS: PCP Family Medicine; Visit Provider Nurse Practitioner Family
DX: R73.03 Prediabetes (principal); Z00.00 Encounter for general adult medical examination without abnormal findings; E55.9 Vitamin D deficiency, unspecified; Z13.29 Encounter for screening for other suspected endocrine disorder; E78.2 Mixed hyperlipidemia
CPT/HCPCS: 36415; 80053; 80061; 82306; 83036; 84443; 85025

== ENCOUNTER 2024-01-10 10:21 | Outpatient (CLI) | payer MEDICARE, SELFPAY ==
--- NOTE | ~2024-01-10 | CT_ITS ---
EXAMINATION: CT diagnostic chest wo con DATE: 01/10/2024 10:39 INDICATION: Other nonspecific abnormal finding of lung field, asthma TECHNIQUE: Computed tomography (CT) of the chest was performed without intravenous contrast. Addition al 3D reconstructions utilizing coronal maximum intensity projection (MIP) were performed. Automated exposure control and iterative reconstruction technique were employed. The dose-length product was 29 5.51 mGy-cm. COMPARISON: 06/10/2022 FINDINGS: There is mild bronchial wall thickening with scattered mucous plugging in some of the smaller subsegm ental bronchi in the bilateral upper lobes. No significant change in a few scattered 3 mm or smaller nodules in both lungs. No pneumonia, pulmonary edema or pleural effusion. Heart size is normal. No pe ricardial effusion. Thoracic aorta is normal in caliber. No pathologically enlarged thoracic lymphade nopathy. The visualized upper abdomen is unremarkable. Mild to moderate thoracic spondylosis. IMPRESSION: 1. No interval change in a few 3 mm or smaller scattered pulmonary nodules which given the interval s tability are likely benign. 2. Mild bronchial wall thickening which could be due to bronchitis or reactive airway disease/asthma with some subsegmental mucous plugging in a few of the bilateral upper lobe bronchi. Reviewed, dictated and finalized at location B. IMPRESSION: 1. No interval change in a few 3 mm or smaller scattered pulmonary nodules whic h given the interval stability are likely benign. 2. Mild bronchial wall thickening which could be due to bronchitis or reactive airway disease/asthma with some subsegmental mucous plugging in a few of the bi lateral upper lobe bronchi.
== END 2024-01-10 10:22 | disposition home or self-care (01) ==
PROVIDERS: PCP Family Medicine; Visit Provider Nurse Practitioner Family
DX: R91.8 Other nonspecific abnormal finding of lung field (principal); J45.909 Unspecified asthma, uncomplicated
CPT/HCPCS: 71250

== ENCOUNTER 2024-07-01 11:00 | Outpatient (CLI) | payer MEDICARE, SELFPAY ==
[2024-07-01 13:25] LABS: Basophils Percent Auto 0.2 % (0.2-1.2); Hematocrit 39.6 % (37.0-47.0); Hemoglobin 12.6 g/dL (12.0-15.0); Immature Granulocyte Absolute 0.02 K/mm3 (0.00-0.031); Immature Granulocyte Percent A 0.3 % (0-0.5); Lymphocytes Absolute Auto 2.33 K/mm3 (0.9-3.2); Lymphocytes Percent Auto 39.5 % (18.3-44.2); Mean Corpuscular HGB Conc 31.8 g/dl (32-36); Mean Corpuscular Hemoglobin 30.1 pg (26-34); Mean Corpuscular Volume 94.7 fl (80-100); Mean Platelet Volume 10.6 fl (7.4-10.4); Monocytes Absolute Auto 0.6 K/mm3 (0.1-0.6); Monocytes Percent Auto 9.3 % (2.6-8.5); Neutrophils Percent Auto 50.7 % (45.5-73.1); Platelet Count Result 211 k/mm3 (150-375); Red Blood Count 4.18 M/mm3 (4.2-5.4); Red Cell Distribution Width 12.8 % (11.5-14.5); White Blood Count 5.9 K/mm3 (4.5-10.0)
[2024-07-01 14:14] LABS: Alanine Aminotransferase 25 U/L (6-35); Albumin Level 4.3 g/dL (3.5-5.1); Alkaline Phosphatase 81 U/L (38-126); Anion Gap 9 mmol/L (4-12); Aspartate Amino Transferase 30 U/L (14-36); Bilirubin,Total 0.6 mg/dL (0.2-1.3); Blood Urea Nitrogen 16 mg/dL (7-17); Carbon Dioxide 27 mmol/L (22-30); Chloride 104 mmol/L (98-107); Cholesterol 162 mg/dL (0-200); Estimated Glomerular Filt Rate > 60; Glucose 77 mg/dL (65-110); HDL Direct 46 mg/dL; Potassium 4.4 mmol/L (3.4-5.0); Sodium 140 mmol/L (137-145); Triglycerides 90 mg/dL (<150)
[2024-07-01 14:25] LABS: LDL Cholesterol Direct 81 mg/dL
[2024-07-01 14:44] LABS: Thyroid Stimulating Hormone 0.301 uIU/mL (0.465-4.680)
[2024-07-01 15:29] LABS: Free T4 Free Thyroxine 1.29 ng/dL (0.78-2.19); Vitamin D 25 Hydroxy 49.1 ng/mL
[2024-07-01 20:22] LABS: Hemoglobin A1C 5.5 % (<5.7)
== END 2024-07-01 11:01 | disposition home or self-care (01) ==
LOC: ANHGOSHLAB 11:02
PROVIDERS: PCP Family Medicine; Visit Provider Nurse Practitioner Family
DX: E55.9 Vitamin D deficiency, unspecified (principal); I10 Essential (primary) hypertension; E78.5 Hyperlipidemia, unspecified; E05.90 Thyrotoxicosis, unspecified without thyrotoxic crisis or storm; R73.03 Prediabetes
CPT/HCPCS: 36415; 80053; 80061; 82306; 83036; 84439; 84443; 85025

== ENCOUNTER 2024-12-31 16:11 | Outpatient (CLI) | payer MEDICARE, SELFPAY ==
--- NOTE | ~2024-12-31 | MM_ITS ---
EXAMINATION: MM screening coty BI w enrique HISTORY: Screening TECHNIQUE: Craniocaudal and mediolateral oblique 3-D tomosynthesis images were obtained and synthetic 2-D images were generated. CAD analysis was submitted and interpreted. COMPARISON: Mammograms from 07/30/2023, 07/07/2023, 03/10/2022 and 02/11/2022 BREAST PARENCHYMAL COMPOSITION: There are scattered areas of fibroglandular density. FINDINGS: No suspicious calcifications. Mass in the lower inner quadrant of the right breast, middle depth. Asymmetry in the upper left breast, middle depth, seen in the left MLO projection IMPRESSION: 1. Mass in the lower inner quadrant of the right breast, middle depth. The study is incomplete. A diagnostic right breast mammogram and a diagnostic right breast ultrasound is recommended. 2. Asymmetry in the upper left breast. The study is incomplete. A diagnostic left breast mammogram and diagnostic left breast ultrasound is recommended. BI-RADS Category 0: Incomplete-needs additional imaging evaluation Reviewed, dictated and finalized at location Q. IMPRESSION: 1. Mass in the lower inner quadrant of the right breast, middle depth. The stud y is incomplete. A diagnostic right breast mammogram and a diagnostic right diomedes ast ultrasound is recommended. 2. Asymmetry in the upper left breast. The study is incomplete. A diagnostic le ft breast mammogram and diagnostic left breast ultrasound is recommended. BI-RADS Category 0: Incomplete-needs additional imaging evaluation
--- OUTSIDE RECORDS SUMMARY | 2024-12-31 17:14 | XMS_ITS | Clinical Summary ---
Author Organization [facility] [employer] Address [address] [address] Care Team Providers Care Associate Dentist Name Role Phone Unavailable Primary Care Provider Unavailabl e Source Comments [facility],non-owned Affiliates and Associated Physician Practices is amultiple site organization consisting of ambulatory clinics and hospital sitesin [place], [place], [place] and [place]. This disclosure is being madepursuant to the Care Everywhere program and may not contain all information available regarding this patient. 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 Gender Identity Not on file Sexual Orientation Not on file Plan of Treatment Health Maintenance Due Date Last Done Comments BONE DENSITY TESTING 1955 COLOGUARD (AGES 45-75) - COL ON CA SCREENING 1955 COLON MONITORING 1955 COLONOSCOPY - COLON CA SCREENING 1955 CT COLONOGRAPHY - COLON CA SCREENING 1955 Colorectal Cancer Screening 1955 FIT - COLON CA SCREENING 1955 FLEX SIG - COLON CA SCREENING 1955 LIPID TESTING 1955 MAMMOGRAM 1955 HEPATITIS C SCREENING 04/03/1973 DTAP/TDAP/TD VACCINES (1 - Tdap) 1974 PNEUMOCOCCAL VACCINE 50+ (1 of 1 - PCV) 2005 ZOSTER VACCINE (1 of 2) 2005 DEPRESSION SCREENING 04/30/2024 COVID-19 VACCINE (3 - 2024-2 6 season) 2024 07/10/2020, 06/12/2020 INFLUENZA VACCINE (#1) 2024 0, 02/07/2019, 02/12/2018 Respiratory Syncytial Virus (RSV) Vaccine Pt: or over 60 yrs (1 - 1-dose 75+ series) 2030 HEPATITIS B VACCINE Aged Out No longe r eligible based on patient's age to complete this topic HIB VACCINE Aged Out No longer eligi ble based on patient's age to complete this topic HPV VACCINE Aged Out No longer eligi ble based on patient's age to complete this topic MENINGOCOCCAL (Group B) VACCINE SHARED DECISION-MAKING Aged Out No longer eligible based on patient's age to complete this topic MENINGOCOCCAL GROUPS A/C/Y/W VACCINE Aged Out No longer eligible b ased on patient's age to complete this topic
== END 2024-12-31 16:12 | disposition home or self-care (01) ==
LOC: ANHFOHIMG 16:35
PROVIDERS: PCP Family Medicine; Visit Provider Nurse Practitioner Family
DX: Z12.31 Encounter for screening mammogram for malignant neoplasm of breast (principal); R92.8 Other abnormal and inconclusive findings on diagnostic imaging of breast
CPT/HCPCS: 77063; 77067

== ENCOUNTER 2025-01-26 07:31 | Outpatient (CLI) | payer MEDICARE, SELFPAY ==
--- NOTE | ~2025-01-26 | MMUS_ITS ---
EXAMINATION: MM diagnostic coty BI w enrique, US breast LT complete, US breast RT limited HISTORY: Follow-up right breast mass and left breast asymmetry TECHNIQUE: Additional 3-D tomosynthesis images of the breasts were performed and synthetic 2-D images were generated. CAD analysis was submitted and interpreted. High resolution Limited right and complete left breast ultrasound was performed. COMPARISON: Comparison to multiple prior studies sequentially, with oldest reviewed study dated 11/22/2020. BREAST PARENCHYMAL COMPOSITION: Not dense: There are scattered areas of fibroglandular density. FINDINGS: MAMMOGRAPHIC FINDINGS: There is a small 5 mm mass lower inner quadrant of the right breast, anterior- middle depth. In the left breast there are obscured small masses in the upper aspect of the left breast on MLO view, not definitely visualized on prior cc view. ULTRASOUND: Complete US of all 4 quadrants of the breast/s and retroareolar region was reviewed. Right breast: At 11:00, 5 cm from the nipple there are 2 adjacent oval hypoechoic mass is largest measuring 6 mm. At 12:00, 4 cm from the nipple there is an oval hypoechoic mass without internal vascularity, posterior features. There is parallel orientation with mass measuring up to 7 mm. These findings are likely benign. Left breast: There are multiple small cysts of the left breast. At 10:00 near the nipple there is an oval hypoechoic mass with low level internal echoes measuring 4 mm. There is parallel orientation, no posterior features and no internal vascularity. At 11:00 near the nipple there is a cluster of minimally complicated cysts. At 12:00, 5 cm from the nipple there is an oval mildly complicated cyst measuring 10 mm with parallel orientation, no significant posterior features and no internal vascularity, likely benign. IMPRESSION: 1. Probable benign bilateral breast masses. 2. Recommend 6 month follow-up diagnostic bilateral mammogram and Limited bilateral breast ultrasound. BI-RADS category 3, probably benign findings. Reviewed, dictated and finalized at location B. IMPRESSION: 1. Probable benign bilateral breast masses. 2. Recommend 6 month follow-up diagnostic bilateral mammogram and Limited bilat eral breast ultrasound. BI-RADS category 3, probably benign findings. IMPRESSION: 1. Probable benign bilateral breast masses. 2. Recommend 6 month follow-up diagnostic bilateral mammogram and Limited bilat eral breast ultrasound. BI-RADS category 3, probably benign findings.
== END 2025-01-26 07:32 | disposition home or self-care (01) ==
LOC: MICIMG 07:31
PROVIDERS: PCP Family Medicine; Visit Provider Family Medicine
DX: R92.8 Other abnormal and inconclusive findings on diagnostic imaging of breast (principal)
CPT/HCPCS: 76641; 76642; 77062; 77066; G0279

== ENCOUNTER 2025-01-29 12:33 | Outpatient (CLI) | payer MEDICARE, SELFPAY ==
--- OUTSIDE RECORDS SUMMARY | 2025-01-29 12:40 | XMS_ITS | Clinical Summary ---
Author Organization [facility] Address [address] [place] [address] Care Team Providers Care [place] Management Professor Name Role Phone Unavailable Primary Care Provider Unavailabl e Source Comments [facility],non-owned Affiliates and Associated Physician Practices is amultiple site organization consisting of ambulatory clinics and hospital sitesin [place], [place], [place] and [place]. This disclosure is being madepursuant to the Care Everywhere program and may not contain all information available regarding this patient. Last updated 18.[facility] Social History Tobacco Use Types Packs/Day Years Used Date Smoking Tobacco: Never Assessed Comments Unknown Sex and Gender Information Value Date Recorded Sex Assigned at Not on file Legal Sex Female 6:13 AM [employer] Gender Identity Not on file Sexual Orientation [...]
--- NOTE | 2025-01-29 13:15 | NEURO_ITS ---
Clinical note: Patient is 69-year-old with complaints of paresthesias in her fingers the right side. There is also history of fracture of the right arm in 1993. No history of diabetes mellitus. The patient has worked as a director business management for 33 years. on a brief neurological examination no focal muscle weakness or wasting or fasciculations were seen in both upper limb muscles. Summary of findings 1. Left and right median motor distal latency with a mild to moderately prolonged left more than right side. Amplitude were within normal limits however conduction velocity mildly decreased on the left and normal on the right side. 2. Left and right ulnar motor distal latencies, amplitudes and conduction velocities from below elbow to wrist were within normal limits however there is mild focal slowing noted across the elbow. 3. Left median palmar and digital sensory responses were absent. Right median palmar and digital sensory distal latencies are moderately prolonged and amplitude is decreased. Conduction velocity also moderately decreased. 4. Left and right radial sensory distal latencies and amplitudes were within normal limits. 5. Left ulnar palmar sensory distal is a mildly prolonged wears right ulnar palmar sensory distal latency was normal. Amplitudes were decreased on both sides. Left and right ulnar digital sensory distal latencies mildly prolonged on the left and normal on the right side. Amplitude however within normal limits. EMG examination performed where the various muscles examined in both upper limbs. Mild diffuse recruitment was noted in the left abductor pollicis brevis however no denervation changes were seen in the various muscles in the C5-T1 distribution and ulnar nerve distribution at this time. Impression: EMG and nerve conduction study on both upper limbs shows following 1. Moderate carpal tunnel syndrome left more than right side. No denervation changes however mild decreased recruitment was noted the left abductor pollicis brevis. 2. 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 No denervation changes were seen in ulnar innervated muscles at the in hand for mild decreased recruitment was noted the left flexor digitorum profundus ulnar heads. 3. Concurrent mild left ulnar neuropathy at wrist. This should be clinically correlated since the patient also noted to have proximal nerve entrapment at the elbow which can lead to of fast conducting axons. However compared to the right side there does appear to be mild abnormality left wrist on ulnar sensory study. Remainder of the findings are within normal limits. Rasheed Crawford M.D. Neurology and electrodiagnostic Medicine Nerve Conduction Studies Motor Nerve Results ? Latency Amplitude F-Lat Segment Distance CV Comment Site (ms) (mV) (ms) (cm) (m/s) Left Median (APB) Motor Wrist 5.6 6.2 Elbow 10.6 5.9 Elbow-Wrist 215 43 Right Median (APB) Motor Wrist 4.5 7.7 Elbow 9.0 7.4 Elbow-Wrist 225 50 Left Ulnar (ADM) Motor Wrist 3.1 6.1 Bel Elbow 7.1 6.3 Bel Elbow-Wrist 200 50 Abv Elbow 8.9 6.3 Abv Elbow-Bel Elbow 80 44 Right Ulnar (ADM) Motor Wrist 2.9 7.7 Bel Elbow 7.0 7.5 Bel Elbow-Wrist 210 51 Abv Elbow 8.9 7.3 Abv Elbow-Bel Elbow 80 42 Sensory Nerve Results ? Latency (Peak) Amplitude (P-P) Segment Distance CV Comment Site (ms) (?V) (cm) (m/s) Left Median DigIII Sensory Wrist-Dig III NR NR Wrist-Dig III 150 NR Right Median DigIII Sensory Wrist-Dig III 4.6 7 Wrist-Dig III 145 32 Left Median-Ulnar Palmar Sensory ? Median Palm-Wrist NR NR Palm-Wrist 80 NR ? Ulnar Palm-Wrist 2.5 9 Palm-Wrist 80 32 Right Median-Ulnar Palmar Sensory ? Median Palm-Wrist 2.8 15 Palm-Wrist 80 29 ? Ulnar Palm-Wrist 1.95 7 Palm-Wrist 80 41 Left Radial Sensory Forearm-Wrist 1.83 35 Forearm-Wrist 100 55 Right Radial Sensory Forearm-Wrist 1.93 35 Forearm-Wrist 100 52 Left Ulnar Sensory Wrist-Dig V 3.4 23 Wrist-Dig V 120 35 Right Ulnar Sensory Wrist-Dig V 3.3 32 Wrist-Dig V 140 42 Electromyography ?Side Muscle Nerve Ins Act Fibs Psw Amp Dur Recrt Comment Right Deltoid Axillary Nml Nml Nml Nml Nml Nml Right Triceps Radial Nml Nml Nml Nml Nml Nml Right Ext Digitorum Radial (Post Int) Nml Nml Nml Nml Nml Nml Right ExtCarUln Radial (Post Int) Nml Nml Nml Nml Nml Nml Right Ext Indicis Radial (Post Int) Nml Nml Nml Nml Nml Nml Right FlexPolLong Median (Ant Int) Nml Nml Nml Nml Nml Nml Right 1stDorInt Ulnar Nml Nml Nml Nml Nml Nml Right Abd Poll Brev Median Nml Nml Nml Nml Nml Nml Right FlexDigProf Ulnar Nml Nml Nml Nml Nml Nml Right FlexCarRad Median Nml Nml Nml Nml Nml Nml Left Deltoid Axillary Nml Nml Nml Nml Nml Nml Left Triceps Radial Nml Nml Nml Nml Nml Nml Left Ext Digitorum Radial (Post Int) Nml Nml Nml Nml Nml Nml Left ExtCarUln Radial (Post Int) Nml Nml Nml Nml Nml Nml Left Ext Indicis Radial (Post Int) Nml Nml Nml Nml Nml Nml Left FlexPolLong Median (Ant Int) Nml Nml Nml Incr N N Left 1stDorInt Ulnar Nml Nml Nml Nml Nml Nml Left Abd Poll Brev Median Nml Nml Nml Nml >12ms +1 Left FlexDigProf Ulnar Nml Nml Nml Nml Nml Dec 1+ Left FlexCarRad Median Nml Nml Nml Nml Nml Nml
== END 2025-01-29 12:34 | disposition home or self-care (01) ==
LOC: ANHNEURO 12:38
PROVIDERS: PCP Family Medicine; Visit Provider Psychiatry & Neurology Neurology
DX: G56.03 Carpal tunnel syndrome, bilateral upper limbs (principal); G56.23 Lesion of ulnar nerve, bilateral upper limbs; E11.9 Type 2 diabetes mellitus without complications; G89.29 Other chronic pain; M54.50 Low back pain, unspecified
CPT/HCPCS: 95886; 95911

== ENCOUNTER 2025-02-26 10:07 | Outpatient (CLI) | payer MEDICARE, SELFPAY ==
--- NOTE | ~2025-02-26 | MR_ITS ---
EXAMINATION: MR lumbar spine wo con DATE: 02/26/2025 10:33 INDICATION: Low back pain radiating down the left leg. TECHNIQUE: Magnetic resonance imaging (MRI) of the lumbar spine was performed without intravenous contrast. Sequences included sagittal T2-weighted FSE, sagittal T2-weighted FS FSE, sagittal T1-weighted FSE, and axial T2-weighted FSE. COMPARISON: None FINDINGS: There is 4 degrees levocurvature of lumbar spine. There is 3 mm anterolisthesis of L4 on L5. There is mild chronic anterior wedging of T12 and L1 vertebral bodies. There is mildly decreased disc height at L4-L5 and severely decreased disc height at L5-S1. Epidural lipomatosis is noted. The distal spinal cord signal intensity is normal. The conus medullaris is at T12-L1. The following disc levels are specifically discussed: L1-L2: The disc does not extend beyond the endplate margin. There is moderate bilateral facet joint osteoarthritis. There is no neural foraminal stenosis. There is no central canal stenosis. L2-L3: The disc is bulging. There is moderate bilateral facet joint osteoarthritis. There is mild bilateral neural foraminal stenosis. There is mild central canal stenosis. L3-L4: The disc is bulging. There is severe right and moderate left facet joint osteoarthritis. There is mild bilateral neural foraminal stenosis. There is no central canal stenosis. L4-L5: The disc is bulging and has an annular fissure. There is severe bilateral facet joint osteoarthritis. There is hypertrophy of the ligamentum flavum. There is mild bilateral neural foraminal stenosis. There is moderate central canal stenosis. L5-S1: The disc is bulging and has an annular fissure. There is severe bilateral facet joint osteoarthritis. There is moderate bilateral neural foraminal stenosis. There is mild central canal stenosis. IMPRESSION: 1. Severe lower lumbar spondylosis. Reviewed, dictated and finalized at location E.
== END 2025-02-26 10:08 | disposition home or self-care (01) ==
LOC: MICIMG 10:08
PROVIDERS: PCP Psychiatry & Neurology Neurology; Visit Provider Psychiatry & Neurology Neurology
DX: M43.06 Spondylolysis, lumbar region (principal); G89.29 Other chronic pain; G56.03 Carpal tunnel syndrome, bilateral upper limbs
CPT/HCPCS: 72148